=== PATIENT | female | born 1975 | race Caucasian/White ===

== ENCOUNTER → 2018-08-17 | Outpatient (CLI) | payer OTHER ==
[~2018-08-17] MED LIST: ESOM20CA PO; ESOM40SU PO; LEVO125T5 PO; LEVO300T2 PO; MULT1TAB60 PO; PREN1TAB47 PO
[2018-08-17 10:21] LABS: BASOPHILS # (AUTO) 0.03 x10^3/uL (0-0.1); BASOPHILS % (AUTO) 0 % (0-1); EOSINOPHILS # (AUTO) 0.33 x10^3/uL (0-0.4); EOSINOPHILS % (AUTO) 4 % (1-7); LYMPHOCYTES % (AUTO) 26 % (22-44); MD NO; MEAN CORPUSCULAR HEMOGLOBIN 27.1 pg (27.0-34.8); MEAN CORPUSCULAR VOLUME 84.8 fL (80-100); MEAN PLATELET VOLUME 8.5 fL (7.4-10.4); MONOCYTES # (AUTO) 0.33 x10^3/uL (0.2-0.8); MONOCYTES % (AUTO) 4 % (2-9); NEUTROPHILS # (AUTO) 5.35 x10^3/uL (1.8-6.8); NEUTROPHILS % (AUTO) 66 % (42-75); PLATELET COUNT 258 x10^3/uL (130-400); RED BLOOD COUNT 4.48 x10^6/uL (3.82-5.3); RED CELL DISTRIBUTION WIDTH 14.9 % (9.6-15.2)
[2018-08-17 10:33] LABS: ALBUMIN 3.6 g/dL (3.4-5.0); ANION GAP 8 mmol/L (5-15); CALCIUM 8.4 mg/dL (8.5-10.1); CHLORIDE 105 mmol/L (98-107)
[2018-08-17 10:39] LABS: ALANINE AMINOTRANSFERASE 26 U/L (12-78); ALKALINE PHOSPHATASE 63 U/L (45-117); BILIRUBIN,TOTAL 0.5 mg/dL (0.2-1.0); CREATININE 0.93 mg/dL (0.55-1.02); TOTAL PROTEIN 7.3 g/dL (6.4-8.2)
== END | disposition home or self-care (01) ==
LOC: STAR 09:36
PROVIDERS: ATTEND Obstetrics & Gynecology
DX: Z01.818 Encounter for other preprocedural examination (principal); N83.202 Unspecified ovarian cyst, left side; Z88.0 Allergy status to penicillin; Z91.040 Latex allergy status
CPT/HCPCS: 36415; 80053; 84703; 85025

== ENCOUNTER 2018-08-30 05:40 | Observation (INO) | payer OTHER ==
[~2018-08-30] VITALS: Ht 167.6 cm; Wt 125.5 kg
[2018-08-30] MEDS ORDERED: BUPIVACAINE 0.25% ONE (06:28)
[2018-08-30] MEDS ORDERED: EPINEPHRINE 1 MG/ML, 1ML ONE (06:28)
[2018-08-30] MEDS ORDERED: VASOPRESSIN 20 UNIT/ML, 1ML ONE (06:28)
[2018-08-30] MEDS: LACTATED RINGERS 1,000 ML IV SCH ×2 (06:45→13:31)
[2018-08-30 07:03] LABS: HCG UR SG 1.021 (1.003-1.030)
[2018-08-30] MEDS ORDERED: MIDAZOLAM 1 MG/ML, 2ML ONE (07:20)
[2018-08-30] MEDS ORDERED: FENTANYL PF 250 MCG/5ML ONE (07:25)
[2018-08-30] MEDS ORDERED: CLINDAMYCIN 150 MG/ML, 6ML ONE (07:29)
[2018-08-30] MEDS ORDERED: METRONIDAZOLE PMX 500MG/100ML 100 ML ONE (07:30)
[2018-08-30] MEDS ORDERED: GENTAMICIN 80 MG/2 ML ONE (07:38)
[2018-08-30] MEDS ORDERED: LIDOCAINE 1%-EPI 1:100K, 30ML ONE (08:40)
[2018-08-30] MEDS ORDERED: SUGAMMADEX 200 MG/2 ML IVPush ONE (09:02)
[2018-08-30] MEDS ORDERED: ROCURONIUM 10MG/ML,5ML ONE (09:11)
[2018-08-30] MEDS ORDERED: CEFAZOLIN 1,000 MG ONE (09:11)
[2018-08-30] MEDS ORDERED: GLYCOPYRROLATE 0.2MG/1ML, 5ML ONE (09:11)
[2018-08-30] MEDS ORDERED: DEXAMETHASONE 4 MG/ML, 1ML ONE (09:11)
[2018-08-30] MEDS ORDERED: ONDANSETRON 2MG/ML, 2ML ONE (09:11)
[2018-08-30] MEDS ORDERED: PROPOFOL 10 MG/ML, 20ML ONE (09:11)
[2018-08-30] MEDS ORDERED: SUCCINYLCHOLINE 20 MG/ML, 10ML ONE (09:11)
[2018-08-30] MEDS ORDERED: NEOSTIGMINE 1 MG/ML, 10ML ONE (09:11)
[2018-08-30] MEDS ORDERED: MEPERIDINE/PF 25MG/0.5ML IVPush PRN (09:30)
[2018-08-30] MEDS ORDERED: OXYcodone 5 MG/5 ML ORAL.SOL UDC PO PRN (09:30)
[2018-08-30] MEDS ORDERED: ACETAMINOPHEN 325 MG TABLET PO PRN (09:30)
[2018-08-30] MEDS ORDERED: LORazepam 2 MG/ML, 1ML IVPush PRN (09:30)
[2018-08-30] MEDS ORDERED: ONDANSETRON 2MG/ML, 2ML IV PRN (09:30)
[2018-08-30] MEDS ORDERED: DIAZEPAM 5 MG/ML, 2ML IVPush PRN (09:30)
[2018-08-30] MEDS ORDERED: ONDANSETRON ODT 8 MG PO PRN (09:30)
[2018-08-30] MEDS ORDERED: PROMETHAZINE 25 MG/ML, 1ML IV PRN (09:30)
[2018-08-30] MEDS ORDERED: OXYcodone/APAP 5/325MG TABLET PO PRN (09:30)
[2018-08-30] MEDS ORDERED: ONDANSETRON 2MG/ML, 2ML IVPush PRN (09:30)
[2018-08-30] MEDS ORDERED: OXYcodone 5 MG/5 ML ORAL.SOL UDC ONE (09:32)
[2018-08-30] MEDS ORDERED: HYDROmorphone 2 MG/ML, 1ML ONE (09:32)
[2018-08-30] MEDS: HYDROmorphone 2 MG/ML, 1ML IVPush PRN ×4 (09:35→10:20)
[2018-08-30] MEDS ORDERED: FENTANYL PF 100 MCG/2ML ONE (09:40)
[2018-08-30] MEDS: FENTANYL PF 100 MCG/2ML IV PRN ×2 (09:43→09:49)
[2018-08-30] MEDS ORDERED: MEPERIDINE/PF 50 MG/ML ONE (09:54)
[2018-08-30 11:00] VITALS: BP 126/81
[2018-08-30] MEDS: KETOROLAC 30 MG/1 ML IVPush PRN ×2 (15:11→21:24)
[2018-08-30 15:17] VITALS: BP 138/86
[2018-08-30 19:58] VITALS: BP 146/72
[2018-08-30 23:55] VITALS: BP 118/72
[2018-08-31 04:23] VITALS: BP 124/74
[2018-08-31] MEDS: KETOROLAC 30 MG/1 ML IVPush PRN (07:06)
[2018-08-31 08:06] VITALS: BP 122/75
== END 2018-08-31 09:45 | disposition home or self-care (01) ==
LOC: OUT 05:40 → 4NOR 09:45 → DCLOUNGE 08-31 09:38
PROVIDERS: ADMIT Obstetrics & Gynecology; ATTEND Obstetrics & Gynecology
DX: N80.9 Endometriosis, unspecified (principal); N73.6 Female pelvic peritoneal adhesions (postinfective); E03.9 Hypothyroidism, unspecified; N83.202 Unspecified ovarian cyst, left side; N93.9 Abnormal uterine and vaginal bleeding, unspecified; O09.519 Supervision of elderly primigravida, unspecified trimester; Z90.710 Acquired absence of both cervix and uterus
CPT/HCPCS: 36415; 58552; 81025; 85014; 85018; 96374; 96376; G0378; J0330; J0690; J1100; J1170; J1580; J1885; J2175; J2250; J2405; J2704; J2710; J3010; J3490; J7120; S0077; J0171

== ENCOUNTER → 2018-10-11 | Outpatient (CLI) | payer OTHER ==
[2018-10-11 08:45] LABS: BASOPHILS # (AUTO) 0.05 x10^3/uL (0-0.1); BASOPHILS % (AUTO) 1 % (0-1); EOSINOPHILS # (AUTO) 0.12 x10^3/uL (0-0.4); EOSINOPHILS % (AUTO) 1 % (1-7); LYMPHOCYTES # (AUTO) 1.96 x10^3/uL (1-3.4); LYMPHOCYTES % (AUTO) 24 % (22-44); MD NO; MEAN CORPUSCULAR HEMOGLOBIN 26.9 pg (27.0-34.8); MEAN CORPUSCULAR HGB CONC 32.4 g/dL (32.4-35.8); MEAN CORPUSCULAR VOLUME 83.1 fL (80-100); MEAN PLATELET VOLUME 8.3 fL (7.4-10.4); MONOCYTES % (AUTO) 5 % (2-9); NEUTROPHILS # (AUTO) 5.78 x10^3/uL (1.8-6.8); NEUTROPHILS % (AUTO) 70 % (42-75); PLATELET COUNT 358 x10^3/uL (130-400); RED BLOOD COUNT 4.51 x10^6/uL (3.82-5.3); RED CELL DISTRIBUTION WIDTH 14.5 % (9.6-15.2)
[2018-10-11 08:53] LABS: INTERNATIONAL NORMALIZED RATIO 0.96 (0.93-1.1); PROTHROMBIN TIME 10.2 Seconds (9.6-11.5)
[2018-10-11 08:58] LABS: ALANINE AMINOTRANSFERASE 24 U/L (12-78); ALBUMIN 3.9 g/dL (3.4-5.0); ANION GAP 5 mmol/L (5-15); CALCIUM 9.4 mg/dL (8.5-10.1); CHLORIDE 104 mmol/L (98-107)
[2018-10-11 09:05] LABS: ALKALINE PHOSPHATASE 73 U/L (45-117); BILIRUBIN,TOTAL 0.4 mg/dL (0.2-1.0); TOTAL PROTEIN 7.8 g/dL (6.4-8.2)
== END | disposition home or self-care (01) ==
LOC: STAR 07:22
PROVIDERS: ATTEND Specialist
DX: Z01.818 Encounter for other preprocedural examination (principal); N80.9 Endometriosis, unspecified
CPT/HCPCS: 36415; 80053; 84703; 85025; 85610; 85730

== ENCOUNTER 2018-10-17 05:43 | Inpatient (IN) | payer OTHER ==
[~2018-10-17] VITALS: Ht 167.6 cm; Wt 129.5 kg
[2018-10-17] MEDS ORDERED: LACTATED RINGERS 1,000 ML IV SCH (06:23)
[2018-10-17 06:27] VITALS: BP 132/84
[2018-10-17] MEDS ORDERED: FENTANYL PF 250 MCG/5ML ONE (06:58)
[2018-10-17] MEDS ORDERED: MIDAZOLAM 1 MG/ML, 2ML ONE (06:58)
[2018-10-17] MEDS ORDERED: EPINEPHRINE 1 MG/ML, 1ML ONE (07:10)
[2018-10-17] MEDS ORDERED: BUPIVACAINE/PF 0.25% ONE (07:10)
[2018-10-17] MEDS ORDERED: HEPARIN 5,000 UNITS/ML, 1ML ONE (07:10)
[2018-10-17] MEDS ORDERED: GABAPENTIN 300 MG CAPSULE PO ONE (07:30)
[2018-10-17] MEDS ORDERED: LABETALOL 5MG/ML, 20ML IV PRN (07:30)
[2018-10-17] MEDS ORDERED: ALBUTEROL SULFATE 2.5 MG/3 ML NPPB PRN (07:30)
[2018-10-17] MEDS ORDERED: LORazepam 2 MG/ML, 1ML IVPush PRN (07:30)
[2018-10-17] MEDS ORDERED: ACETAMINOPHEN 500 MG TABLET PO ONE (07:30)
[2018-10-17] MEDS ORDERED: METOCLOPRAMIDE 5 MG/ML, 2ML IV PRN (07:30)
[2018-10-17] MEDS ORDERED: OXYcodone 5 MG/5 ML ORAL.SOL UDC PO PRN (07:30)
[2018-10-17] MEDS ORDERED: hydrALAzine 20 MG/ML, 1ML IV PRN (07:30)
[2018-10-17] MEDS ORDERED: MEPERIDINE/PF 25MG/0.5ML IVPush PRN ×2 (07:30→11:30)
[2018-10-17] MEDS ORDERED: ONDANSETRON ODT 8 MG PO ONE (07:30)
[2018-10-17] MEDS ORDERED: ROCURONIUM 10MG/ML,5ML ONE (07:46)
[2018-10-17] MEDS ORDERED: NEOSTIGMINE 1 MG/ML, 10ML ONE (07:46)
[2018-10-17] MEDS ORDERED: DEXAMETHASONE 4 MG/ML, 1ML ONE (07:46)
[2018-10-17] MEDS ORDERED: GLYCOPYRROLATE 0.2MG/1ML, 5ML ONE (07:46)
[2018-10-17] MEDS ORDERED: LIDOCAINE 2% 100MG/5ML SYRINGE ONE (07:46)
[2018-10-17] MEDS ORDERED: PROPOFOL 10 MG/ML, 20ML ONE (07:46)
[2018-10-17] MEDS ORDERED: CEFAZOLIN 1,000 MG ONE (07:46)
[2018-10-17] MEDS ORDERED: OXYcodone 5 MG/5 ML ORAL.SOL UDC ONE (10:30)
[2018-10-17] MEDS ORDERED: FENTANYL PF 100 MCG/2ML ONE (10:30)
[2018-10-17] MEDS: FENTANYL PF 100 MCG/2ML IV PRN ×2 (10:31→10:43)
[2018-10-17] MEDS ORDERED: HYDROmorphone 2 MG/ML, 1ML ONE (10:44)
[2018-10-17] MEDS: HYDROmorphone 2 MG/ML, 1ML IVPush PRN ×4 (10:53→11:13)
[2018-10-17] MEDS ORDERED: MEDROXYPROGESTERONE ACETATE 150 MG/ML IM ONE (11:00)
[2018-10-17] MEDS ORDERED: LORazepam 2 MG/ML, 1ML ONE (11:07)
[2018-10-17] MEDS ORDERED: MEPERIDINE/PF 25MG/ML,1ML ONE (11:20)
[2018-10-17] MEDS ORDERED: ONDANSETRON 4 MG TABLET PO PRN (15:30)
[2018-10-17] MEDS ORDERED: OXYcodone/APAP 7.5/325MG TABLET PO PRN (15:30)
== END 2018-10-17 17:05 | disposition home or self-care (01) | DRG 743 ==
LOC: ORIP 05:43
PROVIDERS: ADMIT Specialist; ATTEND Specialist
PROC: 0DNU4ZZ Release Omentum, Percutaneous Endoscopic Approach (ICD-10-PCS; 2018-10-17)
PROC: 0TN74ZZ Release Left Ureter, Percutaneous Endoscopic Approach (ICD-10-PCS; 2018-10-17)
PROC: 0DNN4ZZ Release Sigmoid Colon, Percutaneous Endoscopic Approach (ICD-10-PCS; 2018-10-17)
PROC: 0UT24ZZ Resection of Bilateral Ovaries, Percutaneous Endoscopic Approach (ICD-10-PCS; 2018-10-17)
PROC: 0UT74ZZ Resection of Bilateral Fallopian Tubes, Percutaneous Endoscopic Approach (ICD-10-PCS; 2018-10-17)
PROC: 8E0W4CZ Robotic Assisted Procedure of Trunk Region, Percutaneous Endoscopic Approach (ICD-10-PCS; 2018-10-17)
PROC: 0UT94ZZ Resection of Uterus, Percutaneous Endoscopic Approach (ICD-10-PCS; principal; 2018-10-17 07:30)
DX: N80.1 Endometriosis of ovary (principal); N73.6 Female pelvic peritoneal adhesions (postinfective); K21.9 Gastro-esophageal reflux disease without esophagitis; E03.9 Hypothyroidism, unspecified; N13.5 Crossing vessel and stricture of ureter without hydronephrosis; Z88.0 Allergy status to penicillin
CPT/HCPCS: 36415; 74018; J3490; 81025; 86850; 86900; 86923; 88307; 88329; J0171; J0690; J1100; J1170; J1644; J2175; J2250; J2704; J2710; J3010; Q0162; J1050; J2060; J7120